=== PATIENT | male | born 1945 | race Caucasian/White ===

== ENCOUNTER 2017-01-22 23:31 | Emergency (ER) | payer OTHER ==
[2017-01-22] MEDS ORDERED: predniSONE 10 MG TABLET PO ONE (23:56)
--- NOTE | 2017-01-23 00:14 | ER NURSING DOCUMENTATION ---
Nurse's Notes [facility] Name:Eric Saldana Age:71 yrs Sex:Male :1945 Arrival Date:01/22/2017 Time:23:31 Bed1 Private MD: Diagnosis:Adrenal Insufficiency Presentation: 01/22 23:35 Presenting complaint: Patient states: Med refill. Forgot RX at home. Transition of [facility] care: Home. 23:35 Method Of Arrival: Walk In [facility] 23:35 Acuity: FLY 5 [facility] Triage Assessment: 01/23 00:00 General: Appears in no apparent distress, comfortable, Behavior is cooperative. Pain: 4 Denies pain. Historical: - Allergies: No known drug Allergies; - Home Meds: 1. hydrocortisone 5 mg oral tab 4 times per day 2. lisinopril 40 mg oral tab once daily 3. levothyroxine 13 mcg oral cap once daily - PMHx: HYPOTHYROIDISM; Hypertension; hypopituitary ; - Tetanus: < 10 years. - Ebola Screening: : No symptoms or risks identified at this time. . - Immunization history: Flu Vaccine < 1 year. - Social history: Smoking status: Patient states was never smoker of tobacco. Screenin:08 Infectious Disease Risk None. Abuse screen: Denies threats or abuse. Nutritional [facility] screening: No deficits noted. Assessment: 00:08 See Triage Assessment done by same RN. [facility] Vital Signs: 00:00 BP 132 / 78; Pulse 77; Resp 14; Temp 97.6; Pulse Ox 91% ; Weight 83.91 kg; Height 5 ft. mk4 9 in. (175.26 cm); Pain 0/10; 00:00 Body Mass Index 27.32 (83.91 kg, 175.26 cm) [facility] ED Course: 01/22 23:33 Patient arrived in ED. jt 23:34 Alejo Rosado MD is Attending Physician. sc 23:54 Halie Longoria is Primary Nurse. 4 23:57 Triage completed. 4 01/23 00:08 Family accompanied patient. 4 00:08 Valuables Remains with patient. 4 01:30 Primary Nurse role handed off by Halie Longoria [facility] 01:30 Halie Longoria is Primary Nurse. 4 Administered Medications: 00:02 Drug: predniSONE 2.5 mg; Route: PO; mk4 00:13 Follow up: Response: No adverse reaction mk4 01:35 CANCELLED (wrong order): predniSONE 40 mg PO once mk4 Outcome: 01/22 23:38 Discharge ordered by MD. jj 01/23 00:08 Discharged to home ambulatory. mk4 Condition: good Discharge instructions given to patient, Instructed on discharge instructions, follow up and referral plans. medication usage, Demonstrated understanding of instructions, Prescriptions given X 1. 00:14 Patient left the ED. mk4 01:36 Patient left the ED. mk4 17:14 Discharge F/U Call: Spoke with: patient. Are you having any pain? no. Have you filled sj your prescriptions? no. Reasons not filled: didn't realize pharmacy open on weekends. Gave [facility] hours. Signatures: Alejo Rosado MD MD sc King, Melody 4 Kalyani Ruano Sarah sj
--- NOTE | 2017-01-23 00:14 | ER PHYSICIAN DOCUMENTATION ---
Physician Documentation [facility] Name:Eric Saldana Age:71 yrs Sex:Male :1945 Arrival Date:01/22/2017 Time:23:31 Bed1 Private MD: Alejo Licea Disposition: 01/22/17 23:38 Discharged to Home/Self Care. Impression: Adrenal Insufficiency. - Condition is Good. - Discharge Instructions: MEDICATION REFILL - MED REFILL. - Medical Reconciliation form form. - Follow up: Private Physician; When: 2 - 3 days; Reason: Continuance of care. - Problem is an ongoing problem. - Symptoms are unchanged. HPI: 01/22 23:35 This 71 yrs old Male presents to ER with complaints of Medication Refill. sc 23:35 The patient presents to the emergency department requesting refill(s) for: sc hydrocortisone. The patient chronically suffers from adrenal insufficiency. left med at home, no symptoms and can get refill tuesday. Historical: - Allergies: No known drug Allergies; - Home Meds: 1. hydrocortisone 5 mg oral tab 4 times per day 2. lisinopril 40 mg oral tab once daily 3. levothyroxine 13 mcg oral cap once daily - PMHx: HYPOTHYROIDISM; Hypertension; hypopituitary ; - Tetanus: < 10 years. - Ebola Screening: : No symptoms or risks identified at this time. . - Immunization history: Flu Vaccine < 1 year. - Social history: Smoking status: Patient states was never smoker of tobacco. ROS: 23:36 Eyes: Negative for injury, pain, redness, and discharge. sc Neck: Negative for injury, pain, and swelling. Cardiovascular: Negative for chest pain, palpitations, and edema. Respiratory: Negative for shortness of breath, cough, wheezing, and pleuritic chest pain. Back: Negative for injury and pain. MS/Extremity: Negative for injury and deformity. Skin: Negative for injury, rash, and discoloration. 23:36 Neuro: Negative for headache, weakness, numbness, tingling, and seizure. sc 23:36 Constitutional: Negative for body aches, fatigue, fever, malaise, poor PO intake. Exam: Constitutional: This is a well developed, well nourished patient who is awake, alert, and in no acute distress. Head/Face: Normocephalic, atraumatic. Eyes: Pupils equal round and reactive to light, extra-ocular motions intact. Lids and lashes normal. Conjunctiva and sclera are non-icteric and not injected. Cornea within normal limits. Periorbital areas with no swelling, redness, or edema. Respiratory: Lungs have equal breath sounds bilaterally, clear to auscultation and percussion. No rales, rhonchi or wheezes noted. No increased work of breathing, no retractions or nasal flaring. 23:36 Skin: Warm, dry with normal turgor. Normal color with no rashes, no lesions, and no sc evidence of cellulitis. Vital Signs: 01/23 00:00 BP 132 / 78; Pulse 77; Resp 14; Temp 97.6; Pulse Ox 91% ; Weight 83.91 kg; Height 5 ft. mk4 9 in. (175.26 cm); Pain 0/10; 00:00 Body Mass Index 27.32 (83.91 kg, 175.26 cm) mk4 MDM: 01/22 23:34 Patient medically screened. mo 23:37 Data reviewed: vital signs, nurses notes, and as a result, I will discharge patient, sc administer steroids, prednisone. Counseling: I had a detailed discussion with the patient and/or guardian regarding: the historical points, exam findings, and any diagnostic results supporting the discharge/admit diagnosis, the need for outpatient follow up, to return to the emergency department if symptoms worsen or persist or if there are any questions or concerns that arise at home. Dispensed Medications: 01/23 00:02 Drug: predniSONE 2.5 mg; Route: PO; mk4 00:13 Follow up: Response: No adverse reaction mk4 01:35 CANCELLED (wrong order): predniSONE 40 mg PO once mk4 Signatures: Alejo Rosado MD MD mo Halie Longoria mk4
== END 2017-01-23 01:36 | disposition home or self-care (01) ==
LOC: ER 23:31
DX: E27.49 Other adrenocortical insufficiency (principal); Z76.0 Encounter for issue of repeat prescription; Z79.52 Long term (current) use of systemic steroids
CPT/HCPCS: 99283; J7512